=== PATIENT | female | born 1945 | race Caucasian/White ===

== ENCOUNTER → 2017-08-14 | Outpatient (CLI) | payer MEDICARE ==
[~2017-08-14] MED LIST: BUSP5TAB PO; BUSP5TAB3 PO; FISH1000 PO; GLUCTAB PO; GLYB1TAB50 PO; METF500T PO; OMEP20CA5 PO; OMEP20TA93 PO; PARO20TA3 PO; PAXI20TA26 PO; ROSU10 PO; ROSU1TAB6 PO
[2017-08-14 13:17] LABS: AUTOMATED NEUTROPHIL # 3.7 TH/MM3 (1.8-7.7); BASOPHIL % 0.3 % (0.0-2.0); EOSINOPHIL # 0.6 TH/MM3 (0-0.4); EOSINOPHIL % 8.9 % (0.0-4.0); HEMATOCRIT 37.9 % (35.0-46.0); HEMOGLOBIN 12.4 GM/DL (11.6-15.3); LYMPH % 26.6 % (9.0-44.0); LYMPHOCYTE # 1.6 TH/MM3 (1.0-4.8); MEAN CELL VOLUME 89.1 FL (80.0-100.0); MEAN CORPUSCULAR HEMOGLOBIN 29.2 PG (27.0-34.0); MEAN CORPUSCULAR HGB CONC 32.8 % (32.0-36.0); MEAN PLATELET VOLUME 7.9 FL (7.0-11.0); MONO % 5.2 % (0.0-8.0); MONOCYTE # 0.3 TH/MM3 (0-0.9); PLATELET COUNT 273 TH/MM3 (150-450); RED BLOOD COUNT 4.25 MIL/MM3 (4.00-5.30); RED CELL DISTRIBUTION WIDTH 13.3 % (11.6-17.2); WHITE BLOOD COUNT 6.2 TH/MM3 (4.0-11.0)
--- NOTE | 2017-08-15 14:10 | EKG ---
Date Performed: 08/14/2017 Time Performed: 13:16:19 PTAGE: 72 years EKG: Sinus rhythm LOW QRS VOLTAGE IN PRECORDIAL LEADS BORDERLINE ECG Since the PREVIOUS TRACING , no significant change noted PREVIOUS TRACIN06/13/2015 11.56 DOCTOR: Roma Marino Interpretating Date/Time 08/15/2017 13:59:56
== END ==
LOC: PHPRE 12:27
PROVIDERS: ATTEND Orthopaedic Surgery
DX: Z01.812 Encounter for preprocedural laboratory examination (principal); Z01.810 Encounter for preprocedural cardiovascular examination; R94.31 Abnormal electrocardiogram [ECG] [EKG]
CPT/HCPCS: 36415; 85025; 93005

== ENCOUNTER → 2017-08-23 | Day surgery (SDC) | payer MEDICARE ==
[~2017-08-23] VITALS: Ht 162.6 cm; Wt 67.2 kg
[~2017-08-23] MED LIST changes: +ACETAMINOPHEN 1000 MG/100 ML 100 ML IV ONE; +ACETAMINOPHEN/HYDROcodone 325 MG/5 MG TAB PO PRN; +BETH10TA2 PO; +BUPIVACAINE/EPINEPHRINE 0.25% PF 30 ML VIAL ONE; +BUSP15TA PO; -BUSP5TAB3 PO; +CHLORHEXIDINE GLUCONATE 2 % 1 PACK (2 CLOTHS) TOPICAL PRN; +CLINDAMYCIN 900 MG/NS 100 ML IV SCH; +DEXAMETHASONE SOD PHOS 4 MG/ML VIAL IV ONE; +DEXAMETHASONE SOD PHOS 4 MG/ML VIAL ONE; +FAMOTIDINE 20 MG/2 ML VIAL ONE; -FISH1000 PO; -GLUCTAB PO; -GLYB1TAB50 PO; +KETOROLAC TROMETHAMINE 30 MG/ML (IVP) VIAL IV PUSH ONE; +KETOROLAC TROMETHAMINE 30 MG/ML (IVP) VIAL IV PUSH PRN; +LACTATED RINGER'S 1000 ML IV PRN; +LIDOCAINE HCL 1% PF 5 ML SYRINGE OTHER ONE; +LOSA25TA PO; +METOPROLOL TARTRATE 25 MG TAB PO PRN; +MORPHINE SULFATE 4 MG/ML INJ ONE; -OMEP20CA5 PO; +ONDANSETRON HCL 4 MG/2 ML VIAL IV PUSH ONE; +ONDANSETRON HCL 4 MG/2 ML VIAL IV PUSH PRN; -PAXI20TA26 PO; +PIOG30TA4 PO; +POVIDONE IODINE 5% (ANTISEPSIS KIT) 4 APPLICATIONS EACH NARE PRN; +PROPOFOL 200 MG/20 ML AMP IV ONE; -ROSU10 PO; +ROSU1TAB8 PO; +SODIUM CHLORID 0.9% 500 ML IV PRN; +TRIAMCINOLONE ACETONIDE 40 MG/ML VIAL ONE; +VANCOMYCIN 1000 MG/NS 250 ML (for <70 kg) IV SCH
--- NOTE | 2017-08-23 09:13 | MP ---
cc: Amari You MD DATE OF OPERATION: 08/23/2017 SURGEON: Dr. Amari You PREOPERATIVE DIAGNOSIS: Internal derangement with tear of medial and lateral meniscus. POSTOPERATIVE DIAGNOSES: 1. Chondromalacia/osteoarthritis, posttraumatic left knee joint. 2. Complex tear medial meniscus. 3. Complex tearing of the lateral meniscus. PROCEDURE: 1. Arthroscopic chondroplasty of medial and lateral compartment. 2. Subtotal medial and lateral meniscectomy. DETAILS OPERATIVE INDICATIONS: The patient was placed on the operating table in the supine position. Adequate general anesthesia was administered by the anesthesiologist. The patient's left knee was prepped and draped in the usual sterile fashion. A timeout was called and the patient's name, procedure, location, etc. were fully confirmed. An Esmarch bandage was used to exsanguinate the left lower extremity and the pneumatic tourniquet was inflated to 300. An anterolateral portal was used for introduction of the scope and a systematic examination of the joint revealed the above-mentioned findings with the main problem being the arthritic changes of the medial and lateral tibial plateau and the complex tearing of the medial meniscus. A spinal needle was placed through a medial portal and instrumentation was carried out through that portal. A subtotal medial meniscectomy was performed with a power shaver and resector. The articular surface chondroplasty was performed with the same instrumentation. The anterior cruciate ligament did show synovial surrounding tissue, which was excised and the underlying ACL was intact. The PCL was intact. The lateral compartment revealed satisfactory articular surfaces, but there did appear to be a tear through the periphery of the middle 1/3 of the lateral meniscus, which was excised with the resector. Thorough aspiration and irrigation was carried out, following which all instruments were removed. The 2 stab wounds were then closed with 3-0 nylon. An intraarticular injection through the lateral portal was carried out and a total of 1 mL of 40 mg Kenalog along with 1 mL of 0.5% Marcaine and 1 mL of 2% lidocaine. Xeroform gauze was applied over both wounds and a bulky dressing applied over this. The tourniquet was deflated after 12 minutes. Sponge count, needle counts and instrument counts were reported correct x2. The estimated blood loss was nil. The patient tolerated the procedure well, went to the recovery room in satisfactory condition. MD LARA Mahoney , 08:46 AM , 09:11 AM
[2017-08-23 10:18] VITALS: BP 129/82; PULSE 85; RESP 16; TEMP 97.5; O2SAT 97
== END | disposition home or self-care (01) ==
LOC: PHSDC 06:10
PROVIDERS: ATTEND Orthopaedic Surgery
DX: S83.232A Complex tear of medial meniscus, current injury, left knee, initial encounter (principal); S83.272A Complex tear of lateral meniscus, current injury, left knee, initial encounter; M94.262 Chondromalacia, left knee
CPT/HCPCS: 01400; 29880; J0131; J1100; J1885; J2270; J2405; J3010; J3301; J3370; J7050; J7120